=== PATIENT | male | born 2000 | race Caucasian/White ===

== ENCOUNTER 2022-03-05 17:54 | Emergency (ER) | payer OTHER, SELFPAY ==
--- NOTE | 2022-03-05 18:22 | EDPHYS ---
Physician Documentation [facility] Name: Octavio Connell Age: 22 yrs Sex: Male : 2000 Arrival Date: 03/05/2022 Time: 18:02 Bed 12 Private MD: ED Physician Jakob Rhoades HPI: 03/05 18:18 This 22 yrs old Male presents to ER via Ambulatory with complaints of STD Exposure. cp 18:19 The patient presents with tested positive for chlamydia. Patient with positive test cp results on phone. No complaints. Associated signs and symptoms: The patient has no apparent associated signs or symptoms. Historical: - Allergies: 18:09 Iodine; iw - PMHx: 18:09 None; iw - PSHx: 18:09 None; iw - Immunization history:: Adult Immunizations up to date. - Social history:: Smoking status: Reported history of juuling and/or vaping. ROS: 18:19 All other systems are negative. cp Exam: 18:20 Head/Face: Normocephalic, atraumatic. cp 18:20 Constitutional: The patient appears in no acute distress, alert, awake, comfortable, non-toxic, well developed, well nourished. 18:20 Chest/axilla: Inspection: normal. 18:20 Cardiovascular: Rate: normal. 18:20 Respiratory: the patient does not display signs of respiratory distress, Respirations: normal, no use of accessory muscles. 18:20 Abdomen/GI: Exam negative for discomfort, distension, guarding, Inspection: abdomen appears normal. Vital Signs: 18:07 BP 130 / 82; Pulse 79; Resp 17; Temp 98.7; Pulse Ox 100% ; Weight 52.16 kg; Height 6 iw ft. 1 in. (185.42 cm); Pain 0/10; 18:07 Body Mass Index 15.17 (52.16 kg, 185.42 cm) iw MDM: 18:12 Patient medically screened. cp 18:20 Data reviewed: vital signs, nurses notes, diagnostic data from outside facility, cp positive test results for chlamydia, and as a result, I will discharge patient. Counseling: I had a detailed discussion with the patient and/or guardian regarding: the historical points, exam findings, and any diagnostic results supporting the discharge/admit diagnosis, lab results, to return to the emergency department if symptoms worsen or persist or if there are any questions or concerns that arise at home. Administered Medications: 18:33 Drug: Rocephin (cefTRIAXone) 500 mg Route: IM; Site: left gluteus; ab2 18:37 Follow up: Response: No adverse reaction ab2 18:33 Drug: Zithromax (azithromycin) 1 grams Route: PO; ab2 18:37 Follow up: Response: No adverse reaction ab2 Disposition: 03/06 15:40 Co-signature as Attending Physician, Jakob Rhoades MD I agree with the assessment and kdr plan of care. Disposition Summary: 03/05/22 18:22 Discharge Ordered Location: Home cp Problem: new cp Symptoms: have improved cp Condition: Stable cp Diagnosis - Chlamydial infection, unspecified cp Followup: cp - With: Private Physician - When: 1 - 2 days - Reason: Worsening of condition Discharge Instructions: - Discharge Summary Sheet cp - Chlamydia, Male cp - Antibiotic Medicine, Adult cp Forms: - Medication Reconciliation Form cp - Thank You Letter cp - Antibiotic Education cp - Prescription Opioid Use cp Signatures: Jakob Rhoades MD MD kdr Humaira Leiva RN RN iw Guy Jesus PA PA cp Jerome Tompkins ab2 Corrections: (The following items were deleted from the chart) 03/05 18:09 18:09 Allergies: No Known Allergies; stefania
--- NOTE | 2022-03-05 18:22 | ER ---
Nurse's Notes [facility] Ricardo Name: Octavio Connell Age: 22 yrs Sex: Male : 2000 Arrival Date: 03/05/2022 Time: 18:02 Bed 12 Private MD: Diagnosis: Chlamydial infection, unspecified Presentation: 03/05 18:07 Chief complaint: Patient states: "I got tested STD at [facility] and came back with iw chlamydia and they don't write prescriptions so I came here." Pt denies any discharge, burning or any urinary symptoms. Coronavirus screen: Vaccine status: Patient reports being unvaccinated. Client denies travel out of the [place] in the last 14 days. Ebola Screen: Patient negative for fever greater than or equal to 101.5 degrees Fahrenheit, and additional compatible Ebola Virus Disease symptoms Patient denies exposure to infectious person. Patient denies travel to an Ebola-affected area in the 21 days before illness onset. No symptoms or risks identified at this time. Initial Sepsis Screen: Does the patient meet any 2 criteria? No. Patient's initial sepsis screen is negative. Does the patient have a suspected source of infection? No. Patient's initial sepsis screen is negative. Risk Assessment: Do you want to hurt yourself or someone else? Patient reports no desire to harm self or others. Onset of symptoms is unknown. 18:07 Method Of Arrival: Ambulatory iw 18:07 Acuity: ARMANDO 4 iw Triage Assessment: 18:09 General: Appears in no apparent distress. comfortable, Behavior is anxious. Pain: iw Denies pain. Neuro: No deficits noted. Level of Consciousness is awake, alert, obeys commands, Oriented to person, place, time, situation, Appropriate for age. Cardiovascular: No deficits noted. Respiratory: No deficits noted. Airway is patent Respiratory effort is even, unlabored, Respiratory pattern is regular, symmetrical. GI: No deficits noted. No signs and/or symptoms were reported involving the gastrointestinal system. : No deficits noted. No signs and/or symptoms were reported regarding the genitourinary system. Derm: Skin is intact, is healthy with good turgor. Historical: - Allergies: 18:09 Iodine; iw - PMHx: 18:09 None; iw - PSHx: 18:09 None; iw - Immunization history:: Adult Immunizations up to date. - Social history:: Smoking status: Reported history of juuling and/or vaping. Screenin:32 Abuse screen: Denies threats or abuse. Denies injuries from another. Nutritional ab2 screening: No deficits noted. Tuberculosis screening: No symptoms or risk factors identified. Fall Risk None identified. Assessment: 18:32 General: Appears in no apparent distress. comfortable. Pain: Denies pain. Neuro: Level ab2 of Consciousness is awake, alert, obeys commands, Oriented to person, place, time, situation, Appropriate for age. Vital Signs: 18:07 BP 130 / 82; Pulse 79; Resp 17; Temp 98.7; Pulse Ox 100% ; Weight 52.16 kg; Height 6 iw ft. 1 in. (185.42 cm); Pain 0/10; 18:07 Body Mass Index 15.17 (52.16 kg, 185.42 cm) ED Course: 18:02 Patient arrived in ED. am2 18:03 Guy Jesus PA is PHCP. 18:03 Jakob Rhoades MD is Attending Physician. cp 18:08 Triage completed. iw 18:09 Arm band placed on right wrist. iw 18:32 Patient has correct armband on for positive identification. Bed in low position. Call ab2 light in reach. Side rails up X2. 18:32 No provider procedures requiring assistance completed. ab2 18:37 Jerome Tompkins is Primary Nurse. ab2 18:37 Patient did not have IV access during this emergency room visit. ab2 Administered Medications: 18:33 Drug: Rocephin (cefTRIAXone) 500 mg Route: IM; Site: left gluteus; ab2 18:37 Follow up: Response: No adverse reaction ab2 18:33 Drug: Zithromax (azithromycin) 1 grams Route: PO; ab2 18:37 Follow up: Response: No adverse reaction ab2 Outcome: 18:22 Discharge ordered by . cp 18:37 Discharged to home ambulatory. ab2 18:37 Condition: good 18:37 Discharge instructions given to patient, Instructed on discharge instructions, follow up and referral plans. Demonstrated understanding of instructions, follow-up care. 18:37 Patient left the ED. ab2 Signatures: Humaira Leiva RN RN Guy Jesus PA PA cp Moreno, Amanda am2 Jerome Tompkins ab2 Corrections: (The following items were deleted from the chart) 18:09 18:09 Allergies: No Known Allergies; iw iw
[2022-03-05] MEDS ORDERED: AZITHROMYCIN 250 MG TAB ONE (18:32)
[2022-03-05] MEDS ORDERED: CEFTRIAXONE 500 MG/VIAL ONE (18:32)
[2022-03-05 19:14] VITALS: BP 130/82; TEMP 98.7; O2SAT 100
== END 2022-03-05 18:37 | disposition home or self-care (01) ==
LOC: ER 17:54
DX: A74.9 Chlamydial infection, unspecified (principal); Z91.048 Other nonmedicinal substance allergy status
CPT/HCPCS: 96372; 99283; J0696

== ENCOUNTER 2022-12-15 10:23 | Emergency (ER) | payer SELFPAY ==
--- OUTSIDE RECORDS SUMMARY | 2022-12-15 10:26 | XMS REPORT | Continuity of Care Document ---
:2000 Author Organization [facility] t Address [address] [place] [address] [address] [place] [address] Care Team Providers Name Role Phone PCP, PATIENT DOES NOT HAVE A Primary Care Physician Unavaila JOSE Garcia Attending Clinician Unavailable Jose Lancaster APN Attending Clinician JOSE LANCASTER Admitting Clinician Unavailable Problems Condition Condition Condition Status Onset Resolution Last Treating Co mments Source Name Details Category Date Date Treatment Clinician Date No known No known Disease Unive rs active active ity of problems problems [facility] Allergies, Adverse Reactions, Alerts Allergy Allergy Status Severity Reaction(s) Onset Inactive Treating Comm ents Source Name Type Date Date Clinician IODINE DRUG Active Rash Univers INGREDI 2-11 ity of 00:00: [place] 00 [facility] Iodine Propensi Active Rash Univers ty to 2-11 ity of adverse 00:00: [place] reaction 00 [facility] [place] Social History Social Habit Start Date Stop Date Quantity Comments Source Exposure to 2022-04-02 2022-04-[address] [facility] SARS-CoV-2 (event) 00:00:00 15:08:00 Medica l Branch Sex Assigned At 2000 2000 [facility] 00:00:00 00:00:00 Medical [place] Smoking Status Start Date Stop Date Source Unknown if ever smoked [facility] Medications Ordered Filled Start Stop Current Ordering Indication Dosage Frequency Signature Comments Components Source Medication Medication Date Date Medication? Clinician (SIG) Name Name methocarbam 2021- No 500mg 500 mg, U nivers oL 6-07 06-06 Oral, ONCE ity of (ROBAXIN) 00:00: 23:01 NOW, 1 [place] tablet 500 00 :00 dose, On Medic al mg Tue04/12/22 Branch at 1900, ROSENDO acetaminoph 2021- No 1{tbl} 1 tablet, Univers en-codeine 04-13 Oral, ity of (TYLENOL 00:00: 23:00 ONCE, 1 [place] #3) 300-30 00 :00 dose, On Medic al mg tablet 1 Tue04/12/22 Br anch tablet at 1900, ROSENDO ondansetron 2021- No 4mg 4 mg, Slow Univers (ZOFRAN 04-12 IV Push, ity of (PF)) 22:30: 21:35 ONCE, 1 [place] injection 4 00 :00 dose, On Medi gab mg Tue04/12/22 Branch at 1730, ROSENDO morpHINE (4 No 4mg 4 mg, Slow Univers mg/mL) 04-12 IV Push, ity of injection 4 22:30: 21:35 [place]CE[place] 1 [place] mg [place] :[place] dose, On Medical Tue04/12/22 Branch at 1730, STAT NaCl 0.9% No 1000mL at 999 Uni vers (NS) bolus 04-12 mL/hr, ity of infusion 22:30: 22:45 1,000 mL, Bakari as 1,000 mL 00 :00 IV Medical Infusion, Branch ONCE, 1 dose, On Tue04/12/22 at 1730, STAT acetaminoph 0 Yes [id number] 1{tbl} Take 1 Un [place] en-codeine - tablet by ity of 300-30 mg 00:00: mouth [place] tablet 00 every 6 Medical (six) Branch hours as needed for Pain (scale 4-6). Indication s: acute pain methocarbam Yes [id number] 500mg Take 1 Univers oL 500 mg 6-06 tablet by ity o f tablet 00:00: mouth 4 [place] 00 (four) Medical times Branch daily as needed for Pain (scale 1-3). azithromyci 2019- Yes [id number] 250mg Take 1 Univers n 0-05 tablet by ity of (ZITHROMAX 00:00: mouth [place] Z-KARL) 250 00 SEE-INSTRU Med ical mg tablet CTIONS. Branch Take 500 mg day 1, then 250 mg days 2 to 5. albuterol 2018- Yes [id number] 2{puff} Inhale 2 Univers 90 0-05 Puffs ity of mcg/actuati 00:00: every 4 [place] as on inhaler 00 (four) Medical hours as Branch needed for Wheezing or Shortness of Breath. Vital Signs Vital Name Observation Time Observation Value Comments Source Systolic blood 2022-04-12 23:06:00 138 mm[Hg] [facility] Diastolic blood 2022-04-12 23:06:00 82 mm[Hg] [facility] Heart rate 2022-04-12 23:06:00 88 /min [facility] Respiratory rate 2022-04-12 23:06:00 18 /min [facility] Oxygen saturation in 2022-04-12 23:06:00 100 /min [facility] Arterial blood by [facility] Pulse oximetry [place] Body temperature 2022-04-12 20:09:[address] [facility] Body height 2022-04-12 20:09:00 182.9 cm [facility] Body weight 2022-04-12 20:09:00 70.308 kg [facility] BMI 2022-04-12 20:09:00 21.02 kg/m2 [facility] Procedures Procedure Date / Time Performed Performing Clinician [facility] e CT ABDOMEN PELVIS WO 2022-04-12 21:58:05 Jose Lancaster [facility] CONTRAST [facility] XR HIPS 2 VW LEFT 2022-04-12 21:54:00 Jose Lancaster [facility] URINALYSIS 2022-04-12 21:34:[address] [facility] LIPASE 2022-04-12 21:27:[address] [facility] COMP. METABOLIC PANEL 2022-04-12 21:27:00 Jose Lancaster [facility] ([id number]) Medical Branch CBC WITH DIFF 2022-04-12 21:27:[address] [facility] Encounters Start End Encounter Admission Attending Care Care Encounter Source Date/Time Date/Time Type Type Clinicians Facility Department ID 2022-04-12 2022-04-12 Emergency X ANISHA ALJAYDON ERT [id number] Univers 15:10:00 18:18:00 [facility] 2022-04-12 Emergency An[facility] [id number] Univers 15:10:00 18:18:00 Jose Alba BRONX [id number] [facility] [id number] [facility] [id number] [place] [id number] Branch Results Test Description Test Time Test Comments Results Result Comments Source COMP. METABOLIC PANEL (16715) 2022-04-12 22:14:38 Test Item Value Reference Range Interpretation Comme nts NA (test code = 4990202976) 140 mmol/L 135-145 K (test code = 0730771005) 3.8 mmol/L 3.5-5.0 CL (test code = 8514812695) 104 mmol/L 98-108 CO2 TOTAL (test code = 5321751384) 24 mmol/L 23-31 AGAP (test code = 5816203165) 2-16 BUN (test code = 4096746321) 10 mg/dL 7-23 GLUCOSE (test code = 8834960524) 101 mg/dL 70-110 CREATININE (test code = 0.92 mg/dL 0.60-1.25 3969865332) TOTAL BILI (test code = 1.6 mg/dL 0.1-1.1 H 4208843106) CALCIUM (test code = 1650403507) 9.9 mg/dL 8.6-10.6 T PROTEIN (test code = 8352567025) 7.1 g/dL 6.3-8.2 ALBUMIN (test code = 5651461703) 4.9 g/dL 3.5-5.0 ALK PHOS (test code = 9914746733) 45 U/L 34-122 ALTv (test code = 1742-6) 19 U/L 5-50 AST(SGOT) (test code = 3480072781) 31 U/L 13-40 eGFR (test code = 0312875096) mL/min/1.73m2 OSWALDO (test code = OSWALDO) Association of Glomerular Filtration Rate (GFR) and Staging of Kidney Disease* + +-------- + ------+| GFR (mL/min/1.73 m2) ?| With Kidney Damage ?| ?Without Kidney Damage+ +-- + +| ?>90 ?| ?Stage one ?| ? Normal ?+ +------- + -------+| ?60-89 ?| ?Stage two ?| ? Decreased GFR ? + +-------- + ------+| ?30-59 ?| ?Stage three ?| ? Stage three ? + +-------- + ------+| ?15-29 ?| ?Stage four ? | ? Stage four ?+ +------- + -------+| ?<15 (or dialysis) ? ?| ?Stage five ? | ? Stage five ?+ +------- + -------+ *Each stage assumes the associated GFR level has been in effect for at least three months. ?Stages 1 to 5, with or without kidney disease, indicate chronic kidney disease. Notes: Determination of stages one and two (with eGFR >59mL/min/1.73 m2) requires estimation of kidney damage for at least three months as defined by structural or functional abnormalities of the kidney, manifested by either:Pathological abnormalities or Markers of kidney damage (including abnormalities in the composition of the blood or urine or abnormalities in imaging tests). Lab Interpretation (test code = Abnormal 58171-4) [facility] 22[facility]13:58 Test Item Value Reference Range Interpretation Comments LIPASE (test code = 6471001275) 80 U/L 0-220 Lab Interpretation (test code = Normal 25724-7) [facility] [id number] 21:55:54 Test Item Value Reference Range Interpretation Comments WBC (test code = See_Comment [Automated 7790-2) message] The sy stem which generated this result transmitted reference range : 4.20 - 10.70 10*3/?L. The reference range was not used to interpret this result as normal/abnormal . RBC (test code = See_Comment [Automated 789-8) message] The sy stem which generated this result transmitted reference range : 4.26 - 5.52 10*6/?L. The reference range was not used to interpret this result as normal/abnormal . HGB (test code = 16.1 g/dL 12.2-16.4 718-7) HCT (test code = 44.3 % 38.4-49.3 4544-3) MCV (test code = 86.4 fL 81.7-95.6 787-2) MCH (test code = 31.4 pg 26.1-32.7 785-6) MCHC (test code = 36.3 g/dL 31.2-35.0 H 786-4) RDW-SD (test code = 37.2 fL 38.5-51.6 L 50409-9) RDW-CV (test code = 11.8 % 12.1-15.4 L 788-0) PLT (test code = See_Comment [Automated 777-3) message] The sy stem which generated this result transmitted reference range : 150 - 328 10*3/ ?L. The reference r lola was not used to interpret this result as normal/abnormal . MPV (test code = 10.1 fL 9.8-13.0 01864-6) NRBC/100 WBC (test See_Comment [Automat ed code = 8946327419) message] The system which generated this result transmitted reference range : 0.0 - 10.0 /100 WBCs. The refer ence range was not u sed to interpret th is result as normal/abnormal . NRBC x10^3 (test code <0.01 See_Comment [Auto mated = 9117726171) message] The s ystem which generated this result transmitted reference range : 10*3/?L. The reference range was not used to interpret this result as normal/abnormal . GRAN MAT (NEUT) % 61.2 % (test code = 770-8) IMM GRAN % (test code 0.30 % = 0669463252) LYMPH % (test code = 28.4 % 736-9) MONO % (test code = 7.5 % 5905-5) EOS % (test code = 2.0 % 713-8) BASO % (test code = 0.6 % 706-2) GRAN MAT x10^3(ANC) 4.25 10*3/uL 1.99-6.95 (test code = 4007080012) IMM GRAN x10^3 (test <0.03 0.00-0.06 code = 9715218707) LYMPH x10^3 (test code 1.97 10*3/uL 1.09-3.23 = 731-0) MONO x10^3 (test code 0.52 10*3/uL 0.36-1.02 = 742-7) EOS x10^3 (test code = 0.14 10*3/uL 0.06-0.53 711-2) BASO x10^3 (test code 0.04 10*3/uL 0.01-0.09 = 704-7) Lab Interpretation Abnormal (test code = 64722-7) [facility]"
[2022-12-15 10:57] LABS: Urine Blood Negative (Negative); Urine Glucose Negative (Negative); Urine Protein Negative (Negative); Urine Specific Gravity <=1.005 (1.005-1.030); Urine pH 6.5 (5.0-7.0)
[2022-12-15 11:05] LABS: Urine Bacteria None Seen /HPF (<20); Urine RBC <5 /HPF (None Seen)
[2022-12-15] MEDS ORDERED: LIDOCAINE 1% MPF 2 ML AMPULE ONE (11:20)
[2022-12-15] MEDS ORDERED: CEFTRIAXONE 500 MG/VIAL ONE (11:20)
--- NOTE | 2022-12-15 11:25 | ER ---
Nurse's Notes [facility] Name: Octavio Connell Age: 22 yrs Sex: Male : 2000 Arrival Date: 12/15/2022 Time: 10:26 Bed 20 Private MD: Diagnosis: Nonspecific urethritis Presentation: 12/15 10:37 Chief complaint: Patient states: "I think I have a bladder infection". Pt reports aa5 burning urination, penile white discharge, and urinary frequency x 1-2 weeks ago. Coronavirus screen: At this time, the client does not indicate any symptoms associated with coronavirus-19. Ebola Screen: Patient denies travel to an Ebola-affected area in the 21 days before illness onset. Initial Sepsis Screen: Does the patient meet any 2 criteria? No. Patient's initial sepsis screen is negative. Does the patient have a suspected source of infection? No. Patient's initial sepsis screen is negative. Risk Assessment: Do you want to hurt yourself or someone else? Patient reports no desire to harm self or others. Onset of symptoms was December 2022. 10:37 Acuity: ARMANDO 3 aa5 10:37 Method Of Arrival: Ambulatory aa5 Triage Assessment: 11:41 General: Appears in no apparent distress. comfortable, Behavior is calm, cooperative, kr3 appropriate for age. Pain: Complains of pain in groin. Historical: - Allergies: 10:38 eggs/chicken; aa5 10:38 fish/seafood; aa5 10:38 Iodine (Anaphylaxis); aa5 - PMHx: 10:38 None; aa5 - Immunization history:: Adult Immunizations unknown. - Social history:: Smoking status: Reported history of juuling and/or vaping. Screenin:40 [facility] ED Fall Risk Assessment (Adult) History of falling in the last 3 months, kr3 including since admission No falls in past 3 months (0 pts) Confusion or Disorientation No (0 pts) Intoxicated or Sedated No (0 pts) Impaired Gait No (0 pts) Mobility Assist Device Used No (0 pt) Altered Elimination No (0 pt) Score/Fall Risk Level 0 - 2 = Low Risk Oriented to surroundings, Maintained a safe environment, Educated pt \\T\\ family on fall prevention, incl call for assistance when getting out of bed, Assessed \\T\\ reinforced patient's understanding of fall precautions, Hourly rounding (assess needs \\T\\ fall precautionary measures) done. Abuse screen: Denies threats or abuse. Nutritional screening: No deficits noted. Tuberculosis screening: No symptoms or risk factors identified. Assessment: 11:39 Reassessment: Patient appears in no apparent distress at this time. Patient and/or kr3 family updated on plan of care and expected duration. Pain level reassessed. Patient is alert, oriented x 3, equal unlabored respirations, skin warm/dry/pink. Vital Signs: 10:37 BP 139 / 93; Pulse 84; Resp 16 S; Temp 99.0(TE); Pulse Ox 100% on R/A; Weight 70.31 kg aa5 (R); Height 6 ft. 1 in. (185.42 cm) (R); 11:40 BP 128 / 88; Pulse 80; Resp 17; Pulse Ox 100% on R/A; kr3 10:37 Body Mass Index 20.45 (70.31 kg, 185.42 cm) aa5 ED Course: 10:26 Patient arrived in ED. am2 10:29 Ritesh Lenz NP is PHCP. pm1 10:[address] DO is Attending Physician. pm1 10:37 Arm band placed on. aa5 10:38 Triage completed. aa5 10:40 Bed in low position. Call light in reach. Side rails up X 1. kr3 10:41 Tomasa Lea RN is Primary Nurse. kr3 11:41 No provider procedures requiring assistance completed. Patient did not have IV access kr3 during this emergency room visit. Administered Medications: 11:23 Drug: Rocephin (cefTRIAXone) 500 mg Route: IM; Site: left ventrogluteal; kr3 11:42 Follow up: Response: No adverse reaction kr3 Medication: 11:41 VIS not applicable for this client. kr3 Outcome: 11:24 Discharge ordered by . pm1 11:41 Discharged to home ambulatory. kr3 11:41 Condition: stable 11:41 Discharge instructions given to patient, Instructed on discharge instructions, follow up and referral plans. medication usage, Demonstrated understanding of instructions, follow-up care, medications, Prescriptions given X 1. 11:42 Patient left the ED. kr3 Signatures: Abbey Youssef RN RN aa5 Ritesh Lenz NP [employer] pm1 Suzie Garcia am2 Tomasa Lea, RN RN kr3
--- NOTE | 2022-12-15 11:26 | EDPHYS ---
Physician Documentation [facility] Name: Octavio Connell Age: 22 yrs Sex: Male : 2000 Arrival Date: 12/15/2022 Time: 10:26 Bed 20 Private MD: ED Physician Onofre Lane HPI: 12/15 10:59 This 22 yrs old Male presents to ER via Ambulatory with complaints of Urinary Problem. pm1 10:59 The patient presents with urinary symptoms, whitish penile discharge. Onset: The pm1 symptoms/episode began/occurred 2 week(s) ago. Modifying factors: The symptoms are alleviated by nothing, the symptoms are aggravated by urinating. Associated signs and symptoms: Pertinent negatives: fever, nausea, vomiting. Severity of symptoms: in the emergency department the symptoms are unchanged. The patient has experienced a previous episode, and the symptoms today are exactly the same, STD. The patient has not recently seen a physician. Protected intercourse 4 days ago. Historical: - Allergies: 10:38 eggs/chicken; aa5 10:38 fish/seafood; aa5 10:38 Iodine (Anaphylaxis); aa5 - PMHx: 10:38 None; aa5 - Immunization history:: Adult Immunizations unknown. - Social history:: Smoking status: Reported history of juuling and/or vaping. ROS: 10:59 Constitutional: Negative for fever, chills, and weight loss, Cardiovascular: Negative pm1 for chest pain, palpitations, and edema, Respiratory: Negative for shortness of breath, cough, wheezing, and pleuritic chest pain. 10:59 MS/Extremity: Negative for injury and deformity, Skin: Negative for injury, rash, and discoloration. 10:59 Neuro: Negative for headache, weakness, numbness, tingling, and seizure. 10:59 : Positive for burning with urination, penile discharge, Negative for penile or testicular pain or swelling. 10:59 All other systems are negative. Exam: 10:59 Constitutional: This is a well developed, well nourished patient who is awake, alert, pm1 and in no acute distress. Head/Face: Normocephalic, atraumatic. 10:59 Back: No spinal tenderness. No costovertebral tenderness. Full range of motion. Skin: Warm, dry with normal turgor. Normal color with no rashes, no lesions, and no evidence of cellulitis. MS/ Extremity: Pulses equal, no cyanosis. Neurovascular intact. Full, normal range of motion. 10:59 Cardiovascular: Exam negative for acute changes, Rate: normal, Rhythm: regular, Pulses: no pulse deficits are appreciated. 10:59 Respiratory: Exam negative for acute changes, respiratory distress, shortness of breath. 10:59 Abdomen/GI: Exam negative for acute changes, Inspection: abdomen appears normal, Palpation: abdomen is soft and non-tender, in all quadrants. 10:59 Neuro: Exam negative for acute changes, Orientation: is normal, Mentation: is normal, Motor: is normal, moves all fours, Gait: is steady, at a normal pace, without difficulty. Vital Signs: 10:37 BP 139 / 93; Pulse 84; Resp 16 S; Temp 99.0(TE); Pulse Ox 100% on R/A; Weight 70.31 kg aa5 (R); Height 6 ft. 1 in. (185.42 cm) (R); 11:40 BP 128 / 88; Pulse 80; Resp 17; Pulse Ox 100% on R/A; kr3 10:37 Body Mass Index 20.45 (70.31 kg, 185.42 cm) aa5 MDM: 10:35 Patient medically screened. pm1 11:18 Differential diagnosis: UTI, urethritis, STD. pm1 11:24 Data reviewed: vital signs. pm1 11:24 Counseling: I had a detailed discussion with the patient and/or guardian regarding: the pm1 historical points, exam findings, and any diagnostic results supporting the discharge/admit diagnosis, lab results, the need for outpatient follow up, to return to the emergency department if symptoms worsen or persist or if there are any questions or concerns that arise at home. 12/15 10:55 Order name: Urine Microscopic Only; Complete Time: 11:18 jl7 12/15 10:58 Order name: Urine Dipstick-Ancillary; Complete Time: 11:18 EDMS Administered Medications: 11:23 Drug: Rocephin (cefTRIAXone) 500 mg Route: IM; Site: left ventrogluteal; kr3 11:42 Follow up: Response: No adverse reaction kr3 Disposition: 18:45 Co-signature as Attending Physician, Onofre Lane DO I was immediately available on-site ms3 in the Emergency Department for consultation in the care of the patient. Disposition Summary: 12/15/22 11:24 Discharge Ordered Location: Home pm1 Problem: new pm1 Symptoms: have improved pm1 Condition: Stable pm1 Diagnosis - Nonspecific urethritis pm1 Followup: pm1 - With: Emergency Department - When: As needed - Reason: Worsening of condition Followup: pm1 - With: Private Physician - When: 2 - 3 days - Reason: Recheck today's complaints, Continuance of care, Re-evaluation by your physician Discharge Instructions: - Discharge Summary Sheet pm1 - Urethritis, Adult pm1 Forms: - Medication Reconciliation Form pm1 - Thank You Letter pm1 - Antibiotic Education pm1 - Prescription Opioid Use pm1 Prescriptions: - Doxycycline Hyclate 100 mg Oral Tablet - take 1 tablet by ORAL route every 12 hours; 20 tablet; Refills: 0, Product pm1 Selection Permitted Signatures: Dispatcher [employer] EDAbbey Haas RN RN aa5 Ritesh Lenz, TERRY MANAGER NUCLEAR pm[address] DO DO ms3 Tomasa Lea RN RN kr3
[2022-12-15 11:50] VITALS: TEMP 99; O2SAT 100
[2022-12-15 11:52] VITALS: BP 128/88
== END 2022-12-15 11:42 | disposition home or self-care (01) ==
LOC: ER 10:23
DX: N34.1 Nonspecific urethritis (principal); Z91.012 Allergy to eggs; Z91.013 Allergy to seafood; Z91.018 Allergy to other foods; Z91.048 Other nonmedicinal substance allergy status
CPT/HCPCS: 81003; 81015; J0696

== ENCOUNTER 2023-05-17 20:34 | Emergency (ER) | payer SELFPAY ==
--- OUTSIDE RECORDS SUMMARY | 2023-05-17 20:37 | XMS REPORT | Continuity of Care Document ---
:2000 Author Organization [facility] t Address [address] [place] [id number] Care Team Providers Name Role Phone PCP, PATIENT DOES NOT HAVE A Primary Care Physician Unavaila ROMY Garcia Attending Clinician Unavailable Romy Lancaster APN Attending Clinician ROMY LANCASTER Admitting Clinician Unavailable Problems Condition Condition Condition Status Onset Resolution Last Treating Co mments Source Name Details Category Date Date Treatment Clinician Date No known No known Disease Unive rs active active ity of problems problems [facility] Allergies, Adverse Reactions, Alerts Allergy Allergy Status Severity Reaction(s) Onset Inactive Treating Comm ents Source Name Type Date Date Clinician IODINE DRUG Active Rash Univers INGREDI 2-11 ity of 00:00: [place] 00 [facility] Iodine Propensi Active Rash Univers ty to 2-11 ity of adverse 00:00: [place] reaction 00 [facility] [place] Social History Social Habit Start Date Stop Date Quantity Comments Source Exposure to 2022-04-02 2022-04-12 Not sure [facility] SARS-CoV-2 (event) 00:00:00 15:08:00 Medica l Branch Sex Assigned At [birth year] [facility] 00:00:00 00:00:00 [facility] [place] Smoking Status Start Date Stop Date Source Unknown if ever smoked [facility] Medications Ordered Filled Start Stop Current [...] 4-6). Indication s: acute pain methocarbam Yes [id number] 500mg Take 1 Univers oL 500 mg 6-06 tablet by ity o f tablet 00:00: mouth 4 [place] 00 (four) Medical times Branch daily as needed for Pain (scale 1-3). azithromyci 2019- Yes [id number] 250mg Take 1 Univers n 0-05 tablet by ity of (ZITHROMAX 00:00: mouth [place] Z-KARL) 250 00 SEE-INSTRU Med ical mg tablet CTIONS. Branch Take 500 mg day 1, then 250 mg days 2 to 5. albuterol 2018- Yes [id number] 2{puff} Inhale 2 Univers 90 0-05 Puffs ity of mcg/actuati 00:00: every 4 [place] as on inhaler 00 (four) Medical hours as Branch needed for Wheezing or Shortness of Breath. Vital Signs Vital Name Observation Time Observation Value Comments Source Systolic blood 2022-04-12 23:06:00 138 mm[Hg] [facility] Diastolic blood 2022-04-12 23:06:00 82 mm[Hg] [facility] Heart rate 2022-04-12 23:06:00 88 /min [facility] Respiratory rate 2022-04-12 23:06:00 18 /min [facility] Oxygen saturation in 2022-04-12 23:06:00 100 /min [facility] Arterial blood by [facility] Pulse oximetry [place] Body temperature 2022-04-12 20:09:00 36.06 Wilma [facility] Body height 2022-04-12 20:09:00 182.9 cm [facility] Body weight 2022-04-12 20:09:00 70.308 kg [facility] BMI 2022-04-12 20:09:00 21.02 kg/m2 [facility] Procedures Procedure Date / Time Performed Performing Clinician [facility] ABDOMEN PELVIS WO 2022-04-12 21:58:05 Romy Lancaster [facility] CONTRAST [facility] XR HIPS 2 VW LEFT 2022-04-12 21:54:00 Romy Lancaster [facility] URINALYSIS 2022-04-12 21:34:00 Romy Lancaster [facility] LIPASE 2022-04-12 21:27:00 Romy Lancaster [facility] COMP. METABOLIC PANEL 2022-04-12 21:27:00 Romy Lancaster [facility] ([id number]) Medical Branch CBC WITH DIFF 2022-04-12 21:27:00 Romy Lancaster [facility] Encounters Start End Encounter Admission Attending Care Care Encounter Source Date/Time Date/Time Type Type Clinicians Facility Department ID 2022-04-12 2022-04-12 Emergency X ANISHA ARJAYDON ERT [id number] Univers 15:10:00 18:18:00 [facility]-12 2022-04-12 Emergency Anisha [facility] [id number] Univers 15:10:00 18:18:00 Romy Alba [facility] [id number] [facility] [id number] [facility] [id number] [place] [id number] Branch Results Test Description Test Time Test Comments Results Result Comments Source COMP. METABOLIC PANEL ([id number]) 2022-04-12 22:14:38 Test Item Value Reference Range Interpretation Comme nts NA (test code = 0200770435) 140 mmol/L 135-145 K (test code = 3981262839) 3.8 mmol/L 3.5-5.0 CL (test code = 0045532606) 104 mmol/L 98-108 CO2 TOTAL (test code = 4206886975) 24 mmol/L 23-31 AGAP (test code = 1335853724) 2-16 BUN (test code = 6342229506) 10 mg/dL 7-23 GLUCOSE (test code = 1755257937) 101 mg/dL 70-110 CREATININE (test code = 0.92 mg/dL 0.60-1.25 9528548806) TOTAL BILI (test code = 1.6 mg/dL 0.1-1.1 H 1987214714) CALCIUM (test code = 4629670310) 9.9 mg/dL 8.6-10.6 T PROTEIN (test code = 9528872747) 7.1 g/dL 6.3-8.2 ALBUMIN (test code = 4547696029) 4.9 g/dL 3.5-5.0 ALK PHOS (test code = 8206902513) 45 U/L 34-122 ALTv (test code = 1742-6) 19 U/L 5-50 AST(SGOT) (test code = 1676564522) 31 U/L 13-40 eGFR (test code = 3342178593) mL/min/1.73m2 OSWALDO (test code = OSWALDO) Association [...] tests). Lab Interpretation (test code = Abnormal 98820-9) [facility]58 Test Item Value Reference Range Interpretation Comments LIPASE (test code = 0117054947) 80 U/L 0-220 Lab Interpretation (test code = Normal 36203-4) [facility] [id number] 21:55:54 Test Item Value Reference Range Interpretation Comments WBC (test code = See_Comment [Automated 3990-2) message] The sy stem which generated this [...] (test code = 37.2 fL 38.5-51.6 L 98053-2) RDW-CV (test code = 11.8 % 12.1-15.4 L 788-0) PLT (test code = See_Comment [Automated 777-3) message] The sy stem which generated this result transmitted reference range : 150 - 328 10*3/ ?L. The reference r lola was not used to interpret this result as normal/abnormal . MPV (test code = 10.1 fL 9.8-13.0 46237-6) NRBC/100 WBC (test See_Comment [Automat ed code = 0276370654) message] The system which generated this result transmitted reference range : 0.0 - 10.0 /100 WBCs. The refer ence range was not u sed to interpret th is result as normal/abnormal . NRBC x10^3 (test code <0.01 See_Comment [Auto mated = 8655426767) message] The s ystem which generated this result transmitted reference range : 10*3/?L. The reference range was not used to interpret this result as normal/abnormal . GRAN MAT (NEUT) % 61.2 % (test code = 770-8) IMM GRAN % (test code 0.30 % = 7635339970) LYMPH % (test code = 28.4 % 736-9) MONO % (test code = 7.5 % 5905-5) EOS % (test code = 2.0 % 713-8) BASO % (test code = 0.6 % 706-2) GRAN MAT x10^3(ANC) 4.25 10*3/uL 1.99-6.95 (test code = 3899280114) IMM GRAN x10^3 (test <0.03 0.00-0.06 code = 9940753606) LYMPH x10^3 (test code 1.97 10*3/uL 1.09-3.23 = 731-0) MONO x10^3 (test code 0.52 10*3/uL 0.36-1.02 = 742-7) EOS x10^3 (test code = 0.14 10*3/uL 0.06-0.53 711-2) BASO x10^3 (test code 0.04 10*3/uL 0.01-0.09 = 704-7) Lab Interpretation Abnormal (test code = 00921-2) [facility]"
[2023-05-17] MEDS ORDERED: TDAP (DIPHTH,PERTUSS(ACELL),TET VAC) 0.5 ML VIAL IMVAC ONE (21:25)
--- NOTE | 2023-05-17 22:00 | RAD REPORT ---
EXAM DESCRIPTION: RAD - Forearm Right - 05/17/2023 9:49 pm CLINICAL HISTORY: dog bite COMPARISON: No comparisons TECHNIQUE: Right forearm, 2 views. FINDINGS: No fracture is identified. There is no dislocation or periosteal reaction noted. No foreign body or other soft tissue abnormality. IMPRESSION: Negative right forearm examination.
[2023-05-17] MEDS ORDERED: AMOX/K CLAV 875 MG TAB ONE (22:41)
--- NOTE | 2023-05-17 23:16 | ER ---
Nurse's Notes [facility] Name: Octavio Connell Age: 23 yrs Sex: Male : 2000 Arrival Date: 05/17/2023 Time: 20:34 Bed Treatment Private MD: Diagnosis: Dog Bite - Right Forearm Presentation: 05/17 20:59 Chief complaint: Patient states: was breaking up a dog fight yesterday between his and vc1 his neighbors dog and was bitten to right forearm. Coronavirus screen: Vaccine status: Patient reports being unvaccinated. Client denies travel out of the [place] in the last 14 days. At this time, the client does not indicate any symptoms associated with coronavirus-19. Ebola Screen: Patient negative for fever greater than or equal to 101.5 degrees Fahrenheit, and additional compatible Ebola Virus Disease symptoms Patient denies exposure to infectious person. Patient denies travel to an Ebola-affected area in the 21 days before illness onset. No symptoms or risks identified at this time. Initial Sepsis Screen: Does the patient meet any 2 criteria? No. Patient's initial sepsis screen is negative. Does the patient have a suspected source of infection? No. Patient's initial sepsis screen is negative. Risk Assessment: Do you want to hurt yourself or someone else? Patient reports no desire to harm self or others. Onset of symptoms was May 16, 2023. 20:59 Method Of Arrival: Ambulatory vc1 20:59 Acuity: ARMANDO 4 vc1 Triage Assessment: 21:02 Bite description: bite sustained to dorsal aspect of right forearm and palmar aspect of vc1 right forearm by a dog, animal information: vaccination(s) is unknown. General: Appears in no apparent distress. comfortable, Behavior is calm, cooperative, appropriate for age. Pain: Complains of pain in dorsal aspect of right forearm and palmar aspect of right forearm Pain does not radiate. Pain currently is 6 out of 10 on a pain scale. Quality of pain is described as throbbing, Pain began suddenly, Is continuous, Noted to be resistant to movement. EENT: No deficits noted. No signs and/or symptoms were reported regarding the EENT system. Neuro: Level of Consciousness is awake, alert, obeys commands, Oriented to person, place, time, situation, Appropriate for age. Cardiovascular: No deficits noted. Respiratory: Airway is patent Respiratory effort is even, unlabored, Respiratory pattern is regular, symmetrical. GI: No deficits noted. No signs and/or symptoms were reported involving the gastrointestinal system. : No deficits noted. No signs and/or symptoms were reported regarding the genitourinary system. Derm: Skin abrasion and punctures to right forearm. Musculoskeletal: No deficits noted. No signs and/or symptoms reported regarding the musculoskeletal system. Historical: - Allergies: 21: eggs/chicken; vc1 21:01 fish/seafood; vc1 21:01 Iodine (Anaphylaxis); vc1 - Home Meds: 21: None [Active]; vc1 - PMHx: 21: None; vc1 - PSHx: 21: None; vc1 - Immunization history:: Client reports having NOT received the Covid vaccine. Last tetanus immunization: unknown. - Social history:: Smoking status: Reported history of juuling and/or vaping. Screenin:02 Abuse screen: Denies threats or abuse. Nutritional screening: No deficits noted. vc1 Tuberculosis screening: No symptoms or risk factors identified. 21:03 [facility] ED Fall Risk Assessment (Adult) History of falling in the last 3 months, vc1 including since admission No falls in past 3 months (0 pts) Confusion or Disorientation No (0 pts) Intoxicated or Sedated No (0 pts) Impaired Gait No (0 pts) Mobility Assist Device Used No (0 pt) Altered Elimination No (0 pt) Score/Fall Risk Level 0 - 2 = Low Risk Oriented to surroundings, Maintained a safe environment, Educated pt \T\ family on fall prevention, incl call for assistance when getting out of bed. Assessment: 21:08 General: Francisco Javier CHAPMAN notified of dogbite, to call back for ETA and update. . pf1 21:15 General: Francisco Javier CHAPMAN called back and stated address of location is outside the city pf1 limits of [place], so they notified [facility] Department of incident. . 21:48 General: [employer]ice's badge #2012 and case #[id number]. pf1 22:47 Reassessment: No changes from previously documented assessment. Patient and/or family cm10 updated on plan of care and expected duration. Pain level reassessed. Patient is alert, oriented x 3, equal unlabored respirations, skin warm/dry/pink. Derm: Skin is pink, warm \T\ dry. Vital Signs: 20:59 BP 134 / 77; Pulse 82; Resp 18; Temp 99; Pulse Ox 100% ; Weight 68.04 kg; Height 6 ft. vc1 1 in. ; Pain 6/10; 23:24 BP 131 / 75; Pulse 63; Resp 16; Pulse Ox 98% on R/A; Pain 4/10; pf1 20:59 Body Mass Index 19.79 (68.04 kg, 185.42 cm) vc1 20:59 Pain Scale: Adult vc1 23:24 Pain Scale: Adult pf1 ED Course: 20:36 Patient arrived in ED. ja2 20:37 Andrea Schultz PA is PHCP. [facility] 20:38 Raymond Owen MD is Attending Physician. jmm 21:01 Triage completed. vc1 21:01 Arm band placed on left wrist. vc1 21:06 Brenda Knowles, RN is Primary Nurse. cm10 21:29 Newhebronzacarias Price with [employer] at bedside at this time. cm10 21:50 Forearm Right XRAY In Process Unspecified. EDMS 22:47 Patient has correct armband on for positive identification. Bed in low position. Call cm10 light in reach. Provided Education on: N/A. 22:47 No provider procedures requiring assistance completed. Patient did not have IV access cm10 during this emergency room visit. Administered Medications: 21:20 Drug: Tetanus-Diphtheria Toxoid IM Adult 0.5 ml {Director Of Acquisitions: [employer] cm10 Exp: 10/15/2023. Lot #: [id number]. } Route: IM; Site: left deltoid; 22:38 Follow up: Response: (VIS) Vaccine information sheet provided today. Questions and/or cm10 concerns addressed. VIS edition date: Jun 12, 2021.; No adverse reaction 22:38 Drug: Amoxicillin-Clavulanate PO 875 mg Route: PO; cm10 23:20 Follow up: Response: No adverse reaction cm10 Medication: 21:21 Vaccine Information Statement (VIS) provided today. Questions and/or concerns cm10 addressed. VIS edition date: June 12, 2021. Outcome: 23:14 Discharge ordered by . [facility] 23:16 Discharged to home ambulatory. cm10 23:16 Condition: good 23:16 Discharge instructions given to patient, Instructed on discharge instructions, follow up and referral plans. medication usage, wound care, Demonstrated understanding of instructions, follow-up care, medications, wound care, Prescriptions given X 2. 23:25 Patient left the ED. pf1 Signatures: Dispatcher [employer] EDMS Andrea Schultz PA PA jmm Alexander, Jessica ja2 Calcote, Vanessa, RN RN vc1 Enma Wilkerson RN RN pf1 Brenda Knowles RN RN cm10 Corrections: (The following items were deleted from the chart) 21:48 21:15 General: [facility] called back and stated address if location is outside the [address] limits of [place], so they notified [facility] of incident. . pf1 23:25 23:16 Discharge instructions given to patient, Instructed on discharge instructions, pf1 follow up and referral plans. medication usage, wound care, Demonstrated understanding of instructions, follow-up care, medications, wound care, Prescriptions given X 1, cm10
--- NOTE | 2023-05-17 23:16 | EDPHYS ---
Physician Documentation [facility] Name: Octavio Connell Age: 23 yrs Sex: Male : 2000 Arrival Date: 05/17/2023 Time: 20:34 Bed Treatment Private MD: ED Physician Raymond Owen HPI: 05/17 21:14 This 23 yrs old Male presents to ER via Ambulatory with complaints of Dog Bite. jmm 21:14 Onset: The symptoms/episode began/occurred acutely, yesterday. Secondary to the bite jmm the patient reports pain, Associated signs and symptoms: Pertinent positives: erythema at site, swelling at site, Pertinent negatives: fever, motor deficit, numbness distal to wound. Is a 23-year-old male with no chronic medical conditions that presents to the emergency department with complaints of right forearm pain which initially began after being bitten by dog. Denies other injury.. Historical: - Allergies: 21:01 eggs/chicken; vc1 21:01 fish/seafood; vc1 21:01 Iodine (Anaphylaxis); vc1 - Home Meds: 21:01 None [Active]; vc1 - PMHx: 21:01 None; vc1 - PSHx: 21:01 None; vc1 - Immunization history:: Client reports having NOT received the Covid vaccine. Last tetanus immunization: unknown. - Social history:: Smoking status: Reported history of juuling and/or vaping. ROS: 21:14 Constitutional: Negative for fever, chills, and weight loss, Cardiovascular: Negative jmm for chest pain, palpitations, and edema, Respiratory: Negative for shortness of breath, cough, wheezing, and pleuritic chest pain. 21:14 MS/extremity: Positive for pain. 21:14 All other systems are negative. Exam: 21:14 Constitutional: This is a well developed, well nourished patient who is awake, alert, jmm and in no acute distress. Head/Face: atraumatic. Eyes: EOMI, no conjunctival erythema appreciated ENT: Moist Mucus Membranes Neck: Trachea midline, Supple Chest/axilla: Normal chest wall appearance and motion. Cardiovascular: Regular rate and rhythm. No edema appreciated Respiratory: Normal respirations, no respiratory distress appreciated Abdomen/GI: Non distended Back: Normal ROM 21:14 Musculoskeletal/extremity: Full range of motion appreciated to the right wrist, full radial pulse, compartments are soft, sensation intact, neurovascular intact. 21:14 Skin: Multiple punctures noted to the right forearm on the dorsal and the palmar surface, mild erythema noted, no purulent drainage appreciated. 21:14 Neuro: Orientation: is normal, Mentation: is normal, Memory: is normal. 21:14 Psych: Behavior/mood is pleasant, cooperative. Vital Signs: 20:59 BP 134 / 77; Pulse 82; Resp 18; Temp 99; Pulse Ox 100% ; Weight 68.04 kg; Height 6 ft. vc1 1 in. ; Pain 6/10; 23:24 BP 131 / 75; Pulse 63; Resp 16; Pulse Ox 98% on R/A; Pain 4/10; pf1 20:59 Body Mass Index 19.79 (68.04 kg, 185.42 cm) vc1 20:59 Pain Scale: Adult vc1 23:24 Pain Scale: Adult pf1 MDM: 21:04 Patient medically screened. [facility] 21:14 Differential diagnosis: Fracture, cellulitis. Data reviewed: vital signs, nurses notes. [facility] 22:40 I considered the following discharge prescriptions or medication management in the [facility] emergency department Medications were administered in the Emergency Department. See MAR. 22:40 Counseling: I had a detailed discussion with the patient and/or guardian regarding: the [facility] historical points, exam findings, and any diagnostic results supporting the discharge/admit diagnosis, radiology results, the need for outpatient follow up, to return to the emergency department if symptoms worsen or persist or if there are any questions or concerns that arise at home. Response to treatment: There is no appreciated change of the patient's symptoms at this time. 05/17 21:10 Order name: Forearm Right XRAY; Complete Time: 22:04 [facility] Administered Medications: 21:20 Drug: Tetanus-Diphtheria Toxoid IM Adult 0.5 ml {Credit Risk Associate: [employer] ([employer]). cm10 Exp: 10/15/2023. Lot #: [id number]. } Route: IM; Site: left deltoid; 22:38 Follow up: Response: (VIS) Vaccine information sheet provided today. Questions and/or 10 concerns addressed. VIS edition date: Jun 12, 2021.; No adverse reaction 22:38 Drug: Amoxicillin-Clavulanate PO 875 mg Route: PO; cm10 23:20 Follow up: Response: No adverse reaction cm10 Disposition: 05/18 06:21 Co-signature as Attending Physician, Raymond Owen MD I agree with the assessment sp4 and plan of care. I reviewed the patient's care provided by the Advanced Practice Provider and agree with the diagnosis and treatment plan. Disposition Summary: 05/17/23 23:14 Discharge Ordered Location: Home [facility] Condition: Stable [facility] Diagnosis - Dog Bite - Right Forearm [facility] Followup: [facility] - With: Private Physician - When: 2 - 3 days - Reason: Recheck today's complaints, Continuance of care, Re-evaluation by your physician Discharge Instructions: - Discharge Summary Sheet [facility] - Animal Bite, Adult [facility] Forms: - Medication Reconciliation Form [facility] - Thank You Letter [facility] - Antibiotic Education [facility] - Prescription Opioid Use [facility] - Patient Portal Instructions.htm [facility] Prescriptions: - Augmentin 875-125 mg Oral Tablet - take 1 tablet by ORAL route every 12 hours for 10 days; 20 tablet; Refills: 0, [facility] Product Selection Permitted - Diclofenac Sodium 75 mg Oral Tablet Sustained Release - take 1 tablet by ORAL route 2 times per day; 30 tablet; Refills: 0, Product [facility] Selection Permitted Signatures: Dispatcher [employer] EDAndrea Young PA PA jmm Calcote, Vanessa, RN RN vc1 Raymond Owen MD MD sp4 Brenda Knowles RN RN cm10
[2023-05-18 00:50] VITALS: TEMP 99
[2023-05-18 00:52] VITALS: BP 131/75; O2SAT 98
== END 2023-05-17 23:25 | disposition home or self-care (01) ==
LOC: ER 20:34
DX: S51.831A Puncture wound without foreign body of right forearm, initial encounter (principal); W54.0XXA Bitten by dog, initial encounter; Z23 Encounter for immunization
CPT/HCPCS: 90471; 99284